=== PATIENT | male | born 1945 | race Hispanic/Latino ===

== ENCOUNTER → 2018-09-22 | Outpatient (CLI) | payer MEDICARE | END | disposition home or self-care (01) | LOC: RAH 13:11 | PROVIDERS: ATTEND Urology | DX: N20.0 Calculus of kidney (principal); M47.899 Other spondylosis, site unspecified; R10.11 Right upper quadrant pain; K40.20 Bilateral inguinal hernia, without obstruction or gangrene, not specified as recurrent | CPT/HCPCS: 74018; 74176; 76100 ==